=== PATIENT | male | born 1985 | race African-American/Black ===

== ENCOUNTER 2020-08-07 06:57 | Outpatient (CLI) | payer OTHER ==
[2020-08-07 17:30] LABS: Anion Gap 13 mmol/L (10-20); BUN (Urea Nitrogen) 15 mg/dL (8.9-20.6); Calc. Creatinine Clearance 0 mL/min (70-130); Carbon Dioxide 23 mmol/L (22-29); Chloride 105 mmol/L (98-107); Sodium 137 mmol/L (136-145)
[2020-08-07 17:31] LABS: Calcium 9.5 mg/dL (7.8-10.44); Glucose 105 mg/dL (70-105)
[2020-08-07 20:33] LABS: Hemoglobin 16.6 g/dL (14.0-18.0); Mean Corpuscular HGB CONC 35.4 G/DL (32.0-36.0); Mean Corpuscular Hemoglobin 29.3 PG (27.0-33.0); Mean Corpuscular Volume 82.7 fl (80.0-100.0); Mean Platelet Volume 10.2 fl (7.4-10.4); Platelet Count 242 10x3/uL (130-400); RBC Distribution Width 12.5 % (11.5-14.5); Red Blood Cell (RBC) Count 5.67 10x6/uL (4.40-5.80); White Blood Cell (WBC) Count 6.8 10x3/uL (4.5-11.0)
[2020-08-08 13:15] LABS: SARS-CoV-2 MS2 Positive; SARS-CoV-2 N Gene Negative; SARS-CoV-2 S Gene Negative; SARS-CoV-2 by NAA Not Detected (NotDetected); SARS-CoV-2 orf1ab Negative
== END 2020-08-07 06:58 | disposition home or self-care (01) ==
LOC: LABBT 06:57
PROVIDERS: ATTEND Neurological Surgery
DX: Z01.818 Encounter for other preprocedural examination (principal); Z20.828 Contact with and (suspected) exposure to other viral communicable diseases; M43.16 Spondylolisthesis, lumbar region
CPT/HCPCS: 80048; 85027; 87635; 93005; 93010; U0003

== ENCOUNTER 2020-08-12 06:57 | Day surgery (SDC) | payer OTHER ==
[2020-08-09 10:26] VITALS: BMI 34.7
[2020-08-12] MEDS ORDERED: Ondansetron PF 4 MG/2 ML Vial ONE (09:28)
[2020-08-12] MEDS ORDERED: Rocuronium Bromide 10 MG/ML (10ML VIAL) ONE (09:28)
[2020-08-12] MEDS ORDERED: Glycopyrrolate 0.2 MG/ML 5 ML SYRINGE ONE (09:28)
[2020-08-12] MEDS ORDERED: PROPOFOL 200 MG/20 ML VIAL ONE (09:28)
[2020-08-12] MEDS ORDERED: Lidocaine 1% PF 5 ML VIAL ONE (09:28)
[2020-08-12] MEDS ORDERED: Dexamethasone 20 MG/5 ML VIAL ONE (09:28)
[2020-08-12] MEDS ORDERED: Fentanyl 250 MCG/5 ML VIAL ONE (09:40)
[2020-08-12] MEDS ORDERED: Midazolam HCl 2 mg/2 ml Vial ONE (09:45)
--- NOTE | 2020-08-12 11:32 | OP ---
DATE OF PROCEDURE: 08/12/2020 [employer]: Nancie Rey PA-C PROCEDURES PERFORMED: Right L5-S1 laminectomy, facetectomy, foraminotomy, and diskectomy, interbody arthrodesis, intervertebral biomechanical device, local morselized autograft, demineralized bone matrix posterolateral arthrodesis, pedicle screw instrumentation, L5-S1. DESCRIPTION OF PROCEDURE: The patient was brought to the operating room and intubated. He was rolled in prone position on gel-filled chest rolls. An incision was made exposing L5 and S1 and the levels were confirmed by x-ray. We performed a right-sided L5-S1 laminectomy, facetectomy, foraminotomy, and diskectomy, completely decompressing right L5 and right S1. The disk was incised and debrided and the bony endplates decorticated for the purpose of arthrodesis. An appropriate-sized intervertebral biomechanical PEEK device was brought into the field. It was filled with demineralized bone matrix, local morselized autograft, and tapped into place securely at L5-S1. Next, pedicle screws were placed at right L5 and right S1 using lateral fluoroscopic guidance and the positioning was confirmed by x-ray. The antione was secured between the screws, connected by nuts, which were final tightened. The wound was then extensively irrigated and MAC hemostasis was secured. A combination of demineralized bone matrix, local morselized autograft was laid over the lamina on posterolateral surfaces for the purpose of arthrodesis. Vancomycin powder was applied and the wound was then closed in anatomic layers. Job ID: [id number]
[2020-08-12] MEDS ORDERED: Fentanyl 100 MCG/2 ML VIAL ONE ×2 (11:46→12:30)
[2020-08-12] MEDS ORDERED: Meperidine HCl/PF 25 MG/ML VIAL ONE (11:48)
[2020-08-12] MEDS ORDERED: Tamsulosin HCl 0.4 MG CAP ONE (11:51)
[2020-08-12] MEDS ORDERED: Metoprolol Tartrate 5 MG/5 ML VIAL ONE (11:54)
[2020-08-12] MEDS ORDERED: Cyclobenzaprine 10 MG TAB ONE (12:20)
[2020-08-12] MEDS ORDERED: HYDROcodone/Acetaminophen 5/325 mg Tablet ONE (13:34)
== END 2020-08-12 15:10 | disposition home or self-care (01) ==
LOC: SDC 06:57
PROVIDERS: ATTEND Neurological Surgery
PROC: 0ST40ZZ Resection of Lumbosacral Disc, Open Approach (ICD-10-PCS; principal; 2020-08-12)
PROC: 0SG30AJ Fusion of Lumbosacral Joint with Interbody Fusion Device, Posterior Approach, Anterior Column, Open Approach (ICD-10-PCS; principal; 2020-08-12)
DX: M43.16 Spondylolisthesis, lumbar region (principal); M51.37 Other intervertebral disc degeneration, lumbosacral region; F17.210 Nicotine dependence, cigarettes, uncomplicated; E66.9 Obesity, unspecified; Z68.34 Body mass index [BMI] 34.0-34.9, adult; Z79.899 Other long term (current) drug therapy
CPT/HCPCS: 76000; C1713; C1768; J0690; J1100; J2175; J2250; J2405; J2704; J3010; J3370; J3490

== ENCOUNTER 2020-08-28 09:28 | Outpatient (CLI) | payer OTHER ==
--- NOTE | 2020-08-28 12:27 | RAD ---
LUMBAR SPINE 2 VIEWS: HISTORY: Left spondylolisthesis. Back pain. COMPARISON: No comparison. FINDINGS: Lumbar vertebrae maintain normal height and alignment. Disk spaces are preserved. Pedicle screws ar e seen on the right transfixing L5 and S1. Interbody implant at L5-S1 disk space is noted. No signi ficant listhesis identified. Minimal degenerative spurring. IMPRESSION: Postop changes at L5-S1 noted as described. POS: AGW
== END 2020-08-28 09:29 | disposition home or self-care (01) ==
LOC: TBSIIMAG 09:28
PROVIDERS: ATTEND Neurological Surgery
DX: M43.16 Spondylolisthesis, lumbar region (principal); Z98.890 Other specified postprocedural states
CPT/HCPCS: 72100